=== PATIENT | female | born 1955 | race Caucasian/White ===

== ENCOUNTER → 2019-09-08 08:40 | Outpatient (CLI) | payer OTHER, SELFPAY ==
--- NOTE | ~2019-09-08 | MR_ITS ---
EXAMINATION: MR cervical spine wo con EXAM DATE: 09/08/2019 09:19 INDICATION: Neck pain, bilateral shoulder pain, left arm pain. TECHNIQUE: Multi-sequential, multiplanar MR images of the cervical spine were obtained without contra st. Axial T2, axial T2 MERGE sequence. Sagittal T1, T2, T2 fat saturation images also obtained. Com parison is made to prior examination from 03/05/2017. FINDINGS: There is moderate disc disease C4-7. The vertebral bodies are aligned in the AP dimension. The spinal cord signal intensity and intrinsic morphology is normal. Cervicomedullary junction is no rmal in appearance. There are no suspicious marrow signal abnormalities. Paraspinal soft tissue is un remarkable. Posterior fusion hardware and laminectomies C3-6. Level by level evaluation: C2-C3: Disc does not extend beyond the endplate margin. Uncovertebral joint arthropathy: None. Facet joint arthropathy: Mild bilateral. Neural foraminal stenosis: No stenosis. Central canal stenosis: No stenosis. C3-C4: Disc does not extend beyond the endplate margin. Uncovertebral joint arthropathy: None. Facet joint arthropathy: Poorly visualized. Neural foraminal stenosis: No stenosis. Central canal stenosis: No stenosis. C4-C5: There is a mild diffuse disc bulge. Uncovertebral joint arthropathy: Mild bilateral. Facet joint arthropathy: Poorly visualized. Neural foraminal stenosis: No stenosis. Central canal stenosis: No stenosis. C5-C6: There is a mild diffuse disc bulge. Uncovertebral joint arthropathy: Mild to moderate bilateral. Facet joint arthropathy: Poorly visualized. Neural foraminal stenosis: Mild to moderate right. Central canal stenosis: No stenosis. C6-C7: There is a mild diffuse disc bulge. Uncovertebral joint arthropathy: Moderate bilateral. Facet joint arthropathy: Mild bilateral. Neural foraminal stenosis: Moderate left, mild to moderate right. Central canal stenosis: Mild. . Central canal measures 7 mm in mid sagittal AP diameter . C7-T1: There is a mild diffuse disc bulge. Uncovertebral joint arthropathy: Mild to moderate left, mild right. Facet joint arthropathy: Mild bilateral. Neural foraminal stenosis: Mild bilateral. Central canal stenosis: No stenosis. IMPRESSION: 1. Posterior fusion, laminectomies C3-6. 2. Mild to moderate cervical spondylosis. Reviewed, dictated and finalized at location B.
== END ==
PROVIDERS: PCP Family Medicine; Visit Provider Family Medicine
DX: M47.22 Other spondylosis with radiculopathy, cervical region (principal); Z98.1 Arthrodesis status
CPT/HCPCS: 72141

== ENCOUNTER 2023-10-01 14:28 | Outpatient (CLI) | payer MEDICARE, SELFPAY ==
--- NOTE | ~2023-10-01 | XR_ITS ---
3 VIEWS NASAL BONES Ordering provider: Irasema Martinez MD History: . S02.2XXA - Fracture of nasal bones, initial encounter for... . Comparison: None. FINDINGS: Fractured nasal bones is noted.. The nasal septum is midline. Soft tissues are normal. IMPRESSION: NASAL BONES FRACTURE. Reviewed, dictated and finalized at location A. IMPRESSION: NASAL BONES FRACTURE.
== END 2023-10-01 14:29 ==
PROVIDERS: PCP Family Medicine; Visit Provider Family Medicine
DX: S02.2XXA Fracture of nasal bones, initial encounter for closed fracture (principal); X58.XXXA Exposure to other specified factors, initial encounter
CPT/HCPCS: 70160

== ENCOUNTER 2023-10-01 15:19 | Outpatient (CLI) | payer MEDICARE, SELFPAY ==
--- NOTE | ~2023-10-01 | CT_ITS ---
EXAMINATION: CT brain wo con DATE: 10/01/2023 15:41 INDICATION: Status post fall. Headache and dizziness. Vision changes. Nasal fractures. TECHNIQUE: Computed tomography (CT) of the head was performed without intravenous contrast. The dose- length product was 599.57 mGy-cm. Automated exposure control and iterative reconstruction technique were employed. COMPARISON: None FINDINGS: No acute intracranial hemorrhage, infarction, mass or mass effect. No ventriculomegaly or m idline shift. Basilar cisterns are patent. Normal brain parenchymal volume. There is intracranial ath erosclerosis. Paranasal sinuses and mastoids are pneumatized. No depressed skull fractures. IMPRESSION: 1. No acute intracranial abnormality. Reviewed, dictated and finalized at location B.
== END 2023-10-01 15:20 ==
PROVIDERS: PCP Family Medicine; Visit Provider Physician Assistant Medical
DX: R51.9 Headache, unspecified (principal); R42 Dizziness and giddiness; S02.2XXA Fracture of nasal bones, initial encounter for closed fracture; S06.0XAA Concussion with loss of consciousness status unknown, initial encounter; X58.XXXA Exposure to other specified factors, initial encounter
CPT/HCPCS: 70450